=== PATIENT | female | born 1990 | race Caucasian/White ===

== ENCOUNTER 2019-11-25 21:46 | Outpatient (CLI) | payer OTHER | END 2019-11-26 01:05 | disposition home or self-care (01) | LOC: OBS/DEL 21:46 | PROVIDERS: ATTEND Obstetrics & Gynecology | DX: O26.892 Other specified pregnancy related conditions, second trimester (principal); R10.11 Right upper quadrant pain; R10.2 Pelvic and perineal pain ==

== ENCOUNTER 2020-03-15 19:31 | Inpatient (IN) | payer OTHER ==
[~2020-03-15] VITALS: Ht 152.4 cm; Wt 2.7 kg
[2020-03-15] MEDS ORDERED: PRENATAL TABLE1 EAC4 PO (20:25)
== END 2020-03-18 16:50 | disposition home or self-care (01) | DRG 788 ==
LOC: OBS/DEL 19:31 → LDR 03-16 09:30 → EDBD 03-16 09:30 → OB/GYN 03-16 09:30 → OBS/DEL 03-16 09:30 → O/R 03-16 09:30 → OB/GYN 03-16 14:26
PROVIDERS: ADMIT Obstetrics & Gynecology; ATTEND Obstetrics & Gynecology
PROC: 4A1HXFZ Monitoring of Products of Conception, Cardiac Rhythm, External Approach (ICD-10-PCS; 2020-03-16)
PROC: 3E033VJ Introduction of Other Hormone into Peripheral Vein, Percutaneous Approach (ICD-10-PCS; 2020-03-16)
PROC: 10D00Z1 Extraction of Products of Conception, Low, Open Approach (ICD-10-PCS; principal; 2020-03-16 13:00)
DX: O76 Abnormality in fetal heart rate and rhythm complicating labor and delivery (principal); O69.81X0 Labor and delivery complicated by cord around neck, without compression, not applicable or unspecified; O34.211 Maternal care for low transverse scar from previous cesarean delivery; Z3A.37 37 weeks gestation of pregnancy; Z37.0 Single live birth; Z20.828 Contact with and (suspected) exposure to other viral communicable diseases